=== PATIENT | male | born 1985 | race Caucasian/White ===

== ENCOUNTER 2022-04-02 10:57 | Emergency (ER) | payer OTHER, SELFPAY ==
[2022-04-02 11:11] VITALS: BP 147/93; PULSE 77; RESP 16; TEMP 36.3; O2SAT 98
--- NOTE | 2022-04-02 13:15 | ED.DENTAL ---
HPI - Dental/Oral General Chief complaint: Dental/Oral Stated complaint: Mouth Pain Source: patient Mode of arrival: ambulatory History of Present Illness HPI Narrative: This is a 37-year-old male who presented to our urgent care with multiple dental cavities in fractures. Patient has been experiencing dental pain he does have an appointment in May for dental care. The patient denies SOB, CP, palpitation, extremity numbness, lightheadedness, dizziness, constipation, diarrhea, chills, or fever. Related Data Home Medications Medication Instructions Recorded Confirmed duloxetine 60 mg capsule,delayed 60 mg PO DAILY 04/02/22 04/02/22 release famotidine 20 mg tablet 20 mg PO DAILY 04/02/22 04/02/22 gabapentin 300 mg capsule 300 mg PO TID 04/02/22 04/02/22 meloxicam 7.5 mg tablet 7.5 mg PO DAILY 04/02/22 04/02/22 olanzapine 2.5 mg tablet 2.5 mg PO HS 04/02/22 04/02/22 olanzapine 5 mg tablet 5 mg PO BID 04/02/22 04/02/22 omeprazole 40 mg capsule,delayed 40 mg PO DAILY 04/02/22 04/02/22 release propranolol 20 mg tablet 20 mg PO DAILY 04/02/22 04/02/22 trazodone 50 mg tablet mg 04/02/22 Allergies Allergy/AdvReac Type Severity Reaction Status Date / Time No Known Allergies Allergy Verified 04/02/22 12:24 Review of Systems Review of Systems: A 14 organ system Review of Systems was performed and pertinent positives included in the HPI, otherwise remaining ROS is negative. [facility] Family History Family History (Updated 02/02/14 @ 07:13 by DOCTOR UNKNOWN) Grandparent Diabetes mellitus Other Family history of malignant neoplasm Social History Social History Smoking status: Never smoker Alcohol intake: never Exam Narrative: GENERAL: This is a well-nourished, well-developed patient, in no apparent distress. HEAD: normocephalic, atraumatic. EYES: PERRL. Sclera clear/white. Vision is grossly intact. EARS: External ears normal, auditory canals clear and without drainage, TMs normal without perforation. Hearing grossly intact. NOSE: External nose normal with no obvious nasal discharge, nares without redness, no rhinorrhea. THROAT: Mucous membranes moist, posterior pharynx clear. NECK: Neck supple, non-tender without lymphadenopathy, masses or thyromegaly. CARDIOVASCULAR: Regular rate and rhythm without murmurs, gallops, or rubs. RESPIRATORY: Clear to auscultation. Breath sounds equal bilaterally. No wheezes, rales, or rhonchi. GASTROINTESTINAL: Abdomen soft, non-tender, nondistended. Bowel sounds are active. No hepato-splenomegaly, or palpable masses. No guarding. SKIN: warm, intact with no suspicious lesions or rash, good texture and turgor. NEURO: awake, alert, and oriented to person, place and time. There were no obvious focal neurologic abnormalities. EXTREMITIES: Normal range of motion. No edema. No calf tenderness. Multiple dental cavities with fractures Course Course Level of Care: Express Care Visit Vital Signs Vital signs: Vital Signs Temperature 97.4 F L 04/02/22 11:11 Pulse Rate 77 04/02/22 11:11 Respiratory Rate 16 04/02/22 11:11 Blood Pressure 147/93 H 04/02/22 11:11 Pulse Oximetry 98 04/02/22 11:11 Oxygen Delivery Room Air 04/02/22 11:11 Temperature 97.4 F L 04/02/22 11:11 Pulse Rate 77 04/02/22 11:11 Respiratory Rate 16 04/02/22 11:11 Blood Pressure 147/93 H 04/02/22 11:11 Pulse Oximetry 98 04/02/22 11:11 Oxygen Delivery Room Air 04/02/22 11:11 MDM - Dental/Oral Differential Diagnosis Differential diagnosis: Likely gingival abscess, dental caries, toothache, dental abscess and fracture of tooth Discharge Plan Discharge Clinical Impression: Dental caries, Toothache Patient Disposition: Home, Self-Care Condition: Stable Instructions: Antibiotic Form, Toothache (ED) Additional Instructions: Avoid temperature extremes May apply heat or ice to the face Gentle brushing and flossing Antibiotic as directed Humberto
== END 2022-04-02 13:15 | disposition home or self-care (01) ==
PROVIDERS: Emergency Provider Nurse Practitioner
DX: K02.9 Dental caries, unspecified (principal); K08.89 Other specified disorders of teeth and supporting structures
CPT/HCPCS: 99213; G0463

== ENCOUNTER 2022-12-12 13:15 | Emergency (ER) | payer OTHER, SELFPAY ==
[2022-12-12 13:25] VITALS: BP 130/87; PULSE 85; RESP 20; TEMP 36.1; O2SAT 100
--- NOTE | 2022-12-12 13:32 | ED.DENTAL ---
HPI - Dental/Oral General Chief complaint: Dental/Oral Stated complaint: dental pain Time Seen by Provider: 12/12/22 13:27 Source: patient and RN notes reviewed Mode of arrival: ambulatory Limitations: no limitations History of Present Illness HPI Narrative: Patient presents today complaining of left upper posterior dental pain. States pain has been present for several months has just been worsening. He is on a waiting list to have all of his teeth removed, likely toward the end of December. Currently rates his pain 7/10 and has been taking Tylenol and ibuprofen with mild relief. Denies shortness of breath or difficulty swallowing. No recent antibiotic use. Related Data Home Medications Medication Instructions Recorded Confirmed olanzapine 2.5 mg tablet 2.5 mg PO HS 04/02/22 12/12/22 omeprazole 40 mg capsule,delayed 40 mg PO DAILY 04/02/22 12/12/22 release propranolol 20 mg tablet 20 mg PO DAILY 04/02/22 12/12/22 atorvastatin 80 mg tablet mg 12/12/22 duloxetine 60 mg capsule,delayed 60 mg PO DAILY 12/12/22 12/12/22 release Allergies Allergy/AdvReac Type Severity Reaction Status Date / Time No Known Allergies Allergy Verified 12/12/22 13:31 Review of Systems Review of Systems: CONSTITUTIONAL: Denies body aches, fever, chills, or sweats. EYES: Denies visual changes, redness, or discharge. ENT: Denies rhinorrhea, congestion, sore throat, or otalgia.+ dental pain CARDIOVASCULAR: Denies chest pain, palpitations, or edema. RESPIRATORY: Denies cough or dyspnea. GASTROINTESTINAL: Denies abdominal pain, nausea, vomiting, or diarrhea. GENITOURINARY: Denies dysuria or hematuria. SKIN: Denies rash, itching, or wounds. MUSCULOSKELETAL: Denies back pain, joint pain, or myalgia. NEUROLOGIC: Denies headache, numbness, tingling, or weakness. PSYCH: Denies depression or anxiety. [facility] Family History Family History Grandparent Diabetes mellitus Other Family history of malignant neoplasm Social History Social History Smoking status: Never smoker Alcohol intake: never Comments At time of signature, I have reviewed and agree with nursing past medical, surgical, social and family history unless otherwise noted. Please see nursing chart for further information. There is no relevant family history pertinent to the presenting complaint Exam Narrative: GENERAL: Well-appearing, well-nourished, and in no acute distress. HEAD: Normocephalic, atraumatic. EYES: EOMI. No redness or drainage. Conjunctivae normal. ENT: Mucous membranes pink and moist. Throat normal. Uvula midline. Tooth 16. Is broken off at the gumline and is tender to palpation. No obvious edema, erythema or periapical abscess noted. Gross dental decay and broken teeth. No facial swelling noted. NECK: Normal AROM. CHEST: No respiratory distress. EXTREMITIES: Normal range of motion. No edema. SKIN: Warm, dry, no rash. Capillary refill normal. Normal skin turgor. NEURO: No focal deficits. Alert and oriented x3. Gait steady. PSYCH: Normal affect. No signs of depression or anxiety. Course Course Level of Care: Express Care Visit Vital Signs Vital signs: Vital Signs Temperature 97.0 F L 12/12/22 13:25 Pulse Rate 85 12/12/22 13:25 Respiratory Rate 20 12/12/22 13:25 Blood Pressure 130/87 12/12/22 13:25 Pulse Oximetry 100 12/12/22 13:25 Oxygen Delivery Room Air 12/12/22 13:25 Temperature 97.0 F L 12/12/22 13:25 Pulse Rate 85 12/12/22 13:25 Respiratory Rate 20 12/12/22 13:25 Blood Pressure 130/87 12/12/22 13:25 Pulse Oximetry 100 12/12/22 13:25 Oxygen Delivery Room Air 12/12/22 13:25 Reviewed. Pt has been instructed to follow up with his PCP regarding his elevated blood pressure today. MDM - Dental/Oral MDM Narrative Medical decision making narrative: Will start
== END 2022-12-12 13:39 | disposition home or self-care (01) ==
PROVIDERS: Emergency Provider Nurse Practitioner
DX: K08.89 Other specified disorders of teeth and supporting structures (principal); E78.00 Pure hypercholesterolemia, unspecified; I10 Essential (primary) hypertension; K21.9 Gastro-esophageal reflux disease without esophagitis
CPT/HCPCS: 99213; G0463

== ENCOUNTER 2023-01-06 11:56 | Emergency (ER) | payer OTHER, SELFPAY ==
[2023-01-06 12:15] VITALS: BP 143/94; PULSE 83; RESP 18; TEMP 36.4; O2SAT 99
--- NOTE | 2023-01-06 12:25 | ED.DENTAL ---
HPI - Dental/Oral General Chief complaint: Dental/Oral Stated complaint: dental pain Time Seen by Provider: 01/06/23 12:15 Source: patient Mode of arrival: ambulatory Limitations: no limitations History of Present Illness HPI Narrative: Jace is a 38-year-old male patient presenting to the clinic today with complaints of chronic dental pain but pain has gotten worse since yesterday. He reports that he was seen in the urgent care 1 month ago for dental infection and finished antibiotics at that time.. Has an appointment with the [facility] and October. Denies any fever or chills. Is having pain to the left upper jaw and the right lower jaw. Related Data Home Medications Medication Instructions Recorded Confirmed olanzapine 2.5 mg tablet 2.5 mg PO HS 04/02/22 01/06/23 omeprazole 40 mg capsule,delayed 40 mg PO DAILY 04/02/22 01/06/23 release propranolol 20 mg tablet 20 mg PO DAILY 04/02/22 01/06/23 atorvastatin 80 mg tablet 80 mg PO DAILY 12/12/22 01/06/23 duloxetine 60 mg capsule,delayed 60 mg PO DAILY 12/12/22 01/06/23 release Allergies Allergy/AdvReac Type Severity Reaction Status Date / Time No Known Allergies Allergy Verified 01/06/23 12:14 Review of Systems Review of Systems: Pertinent positives per HPI. Patient denies any fever, chills, rash, headache, visual changes, dizziness, cough, runny nose, sore throat, shortness of breath, chest pain, palpitations, nausea, vomiting, diarrhea, constipation, abdominal pain, or any urinary issues. [facility] Family History Family History Grandparent Diabetes mellitus Other Family history of malignant neoplasm Social History Social History Smoking status: Never smoker Alcohol intake: never Comments At the time of my signature, I reviewed and agree with the nursing past medical, surgical, social, and family history. There is no relevant family history pertinent to the patient complaint. Exam Narrative: General: Well-developed, well nourished, in no apparent distress Head: Normocephalic, atraumatic Eyes: Pupils equally round and reactive to light bilaterally, EOM intact, sclera and conjunctive clear, no discharge, lids normal Ears: TMs intact and clear, ear canals clear, no drainage, grossly hearing normal. Nose: Nares patent, no discharge, no inflammation, no sinus tenderness. Mouth: Oropharynx without lesions or masses, very poor dentition with multiple cavities and fractured teeth, no abscess formation visualized or palpable, halitosis, MMM. Neck: Supple, trachea midline, no enlargement of anterior or posterior cervical nodes, no thyroid masses or goiter palpable. Cardio: Regular rate and rhythm, s1 and s2 normal, no murmur appreciated. Resp: Clear to auscultation bilaterally anteriorly and posteriorly, no rhonchi, rales, wheezing or rubs Course Course Emergency Course: Portions of this record may have been created with voice recognition software. Level of Care: Express Care Visit Vital Signs Vital signs: Vital Signs Temperature 36.4 C 01/06/23 12:15 Pulse Rate 83 01/06/23 12:15 Respiratory Rate 18 01/06/23 12:15 Blood Pressure 143/94 H 01/06/23 12:15 Pulse Oximetry 99 01/06/23 12:15 Oxygen Delivery Room Air 01/06/23 12:15 Temperature 36.4 C 01/06/23 12:15 Pulse Rate 83 01/06/23 12:15 Respiratory Rate 18 01/06/23 12:15 Blood Pressure 143/94 H 01/06/23 12:15 Pulse Oximetry 99 01/06/23 12:15 Oxygen Delivery Room Air 01/06/23 12:15 Vital signs reviewed MDM - Dental/Oral MDM Narrative Medical decision making narrative: At the time of visit patient is resting comfortably on exam table. I suspect patient has multiple dental caries with the dental infection. Will send in prescription for clindamycin. Offer to send in Augmentin but he states that this
== END 2023-01-06 12:33 | disposition home or self-care (01) ==
PROVIDERS: Emergency Provider Nurse Practitioner Family; PCP Family Medicine
DX: K02.9 Dental caries, unspecified (principal); K04.7 Periapical abscess without sinus; E78.00 Pure hypercholesterolemia, unspecified; I10 Essential (primary) hypertension; K21.9 Gastro-esophageal reflux disease without esophagitis
CPT/HCPCS: 99213; G0463

== ENCOUNTER 2024-01-04 14:42 | Emergency (ER) | payer OTHER, SELFPAY ==
[2024-01-04 14:48] VITALS: BP 143/99; PULSE 90; RESP 18; TEMP 36.7; O2SAT 96
--- NOTE | 2024-01-04 16:45 | PC.NURSE ---
Patient states he does not want to wait any longer to see provider. patient educated on risks of leaving and ambulated out of department with [facility]
== END 2024-01-04 16:47 | disposition left against medical advice (07) ==
LOC: ANHED 16:27
PROVIDERS: Emergency Provider Physician Assistant; PCP Family Medicine
DX: K08.89 Other specified disorders of teeth and supporting structures (principal)
CPT/HCPCS: 99199

== ENCOUNTER 2024-01-07 12:16 | Emergency (ER) | payer OTHER, SELFPAY ==
[2024-01-07 12:25] VITALS: BP 145/90; PULSE 92; RESP 18; TEMP 36.9; O2SAT 98
--- NOTE | 2024-01-07 12:43 | ED.DENTAL ---
HPI - Dental/Oral General Chief complaint: Dental/Oral Stated complaint: Toothache Time Seen by Provider: 01/07/24 12:36 Source: patient and RN notes reviewed Mode of arrival: ambulatory Limitations: no limitations History of Present Illness HPI Narrative: Patient presents today complaining of tooth pain. Reports all of his teeth her, but primarily in bilateral posterior bottom teeth are hurting the worst. Symptoms began 2 days ago. Reports gross dental decay. He is supposed to have all of his teeth extracted in 3 weeks. Call his dentist but they could not get him in and instructed him to come to urgent care for antibiotics. Denies fever, shortness of breath, trismus. No recent antibiotic use. He has been using Tylenol and ibuprofen without much relief. Related Data Home Medications Medication Instructions Recorded Confirmed olanzapine 2.5 mg tablet 2.5 mg PO HS 04/02/22 01/06/23 omeprazole 40 mg capsule,delayed 40 mg PO DAILY 04/02/22 01/06/23 release propranolol 20 mg tablet 20 mg PO DAILY 04/02/22 01/06/23 atorvastatin 80 mg tablet 80 mg PO DAILY 12/12/22 01/06/23 duloxetine 60 mg capsule,delayed 60 mg PO DAILY 12/12/22 01/06/23 release Allergies Allergy/AdvReac Type Severity Reaction Status Date / Time No Known Allergies Allergy Verified 01/04/24 14:50 Review of Systems Review of Systems: CONSTITUTIONAL: Denies body aches, fever, chills, or sweats. EYES: Denies visual changes, redness, or discharge. ENT: Denies rhinorrhea, congestion, sore throat, or otalgia.+ tooth pain CARDIOVASCULAR: Denies chest pain, palpitations, or edema. RESPIRATORY: Denies cough or dyspnea. GASTROINTESTINAL: Denies abdominal pain, nausea, vomiting, or diarrhea. GENITOURINARY: Denies dysuria or hematuria. SKIN: Denies rash, itching, or wounds. MUSCULOSKELETAL: Denies back pain, joint pain, or myalgia. NEUROLOGIC: Denies headache, numbness, tingling, or weakness. PSYCH: Denies depression or anxiety. [facility] Family History Family History Grandparent Diabetes mellitus Other Family history of malignant neoplasm Social History Social History Smoking status: Never smoker Alcohol intake: never Comments At time of signature, I have reviewed and agree with nursing past medical, surgical, social and family history unless otherwise noted. Please see nursing chart for further information. There is no relevant family history pertinent to the presenting complaint Exam Narrative: GENERAL: Well-appearing, well-nourished, and in no acute distress. HEAD: Normocephalic, atraumatic. EYES: EOMI. No redness or drainage. Conjunctivae normal. ENT: Mucous membranes pink and moist. Gross dental decay. Many teeth are broken at the gum line or brown in color. No obvious periapical abscess is noted. No facial swelling or trismus noted. NECK: Normal AROM. Supple. No lymphadenopathy. CHEST: No respiratory distress. EXTREMITIES: Normal range of motion. No edema. SKIN: Warm, dry, no rash. Capillary refill normal. Normal skin turgor. NEURO: No focal deficits. Alert and oriented x3. Gait steady. PSYCH: Normal affect. No signs of depression or anxiety. Course Course Emergency Course: . Level of Care: Express Care Visit Vital Signs Vital signs: Vital Signs Temperature 98.4 F 01/07/24 12:25 Pulse Rate 92 01/07/24 12:25 Respiratory Rate 18 01/07/24 12:25 Blood Pressure 145/90 H 01/07/24 12:25 Pulse Oximetry 98 01/07/24 12:25 Oxygen Delivery Room Air 01/07/24 12:25 Temperature 98.4 F 01/07/24 12:25 Pulse Rate 92 01/07/24 12:25 Respiratory Rate 18 01/07/24 12:25 Blood Pressure 145/90 H 01/07/24 12:25 Pulse Oximetry 98 01/07/24 12:25 Oxygen Delivery Room Air 01/07/24 12:25 Reviewed MDM - Dental/Oral MDM Narrative Medical decision making narrative:
== END 2024-01-07 12:47 | disposition home or self-care (01) ==
PROVIDERS: Emergency Provider Nurse Practitioner; PCP Family Medicine
DX: K08.89 Other specified disorders of teeth and supporting structures (principal)
CPT/HCPCS: 99213; G0463

== ENCOUNTER 2024-03-23 14:10 | Emergency (ER) | payer OTHER, SELFPAY ==
[2024-03-23 14:40] VITALS: BP 144/98; PULSE 91; RESP 16; TEMP 36.9; O2SAT 98
--- NOTE | 2024-03-23 14:41 | ED.DENTAL ---
HPI - Dental/Oral General Chief complaint: Dental/Oral Stated complaint: dental infection Time Seen by Provider: 03/23/24 14:26 History of Present Illness HPI Narrative: Patient is a 31-year-old male who presents ER with dental pain. Home mouth. X2 days. He is supposed to have a dental extraction of all of his teeth in [place] in the next week. He is told to go to their office or come here but reports this is closer. No fevers or chills or sweats. No facial swelling. No other complaints. Related Data Home Medications Medication Instructions Recorded Confirmed olanzapine 2.5 mg tablet 2.5 mg PO HS 04/02/22 01/06/23 omeprazole 40 mg capsule,delayed 40 mg PO DAILY 04/02/22 01/06/23 release propranolol 20 mg tablet 20 mg PO DAILY 04/02/22 01/06/23 atorvastatin 80 mg tablet 80 mg PO DAILY 12/12/22 01/06/23 duloxetine 60 mg capsule,delayed 60 mg PO DAILY 12/12/22 01/06/23 release Allergies Allergy/AdvReac Type Severity Reaction Status Date / Time amoxicillin [From Augmentin] AdvReac Vomiting Verified 03/23/24 14:41 clavulanic acid AdvReac Vomiting Verified 03/23/24 14:41 [From Augmentin] Review of Systems Constitutional: Constitutional: Reports no additional constitutional complaints ENT: Denies nasal congestion and Denies sore throat Comments: +dental pain Respiratory: Respiratory: Reports no additional respiratory complaints Gastrointestinal: Gastrointestinal: Reports no additional gastrointestinal complaints [facility] Past Medical History Medical History (Updated 03/23/24 @ 14:47 by Angelo Duaret MD) History of IBS Mixed hyperlipidemia Family History Family History Grandparent Diabetes mellitus Other Family history of malignant neoplasm Social History Social History Smoking status: Never smoker Alcohol intake: never Exam Narrative: GENERAL: Well-appearing, well-nourished, and in no acute distress. HEAD: Normocephalic, atraumatic. ENT: Mucous membranes moist. poor dentition without facial swelling. No fluctuant abscesses identified. EXTREMITIES: Normal range of motion. SKIN: Warm, dry. NEURO: Alert and oriented x3. PSYCH: Normal mood and affect. Course Course Emergency Course: Discharge home with oral antibiotics. Discharge Plan Discharge Clinical Impression: Toothache Patient Disposition: Home, Self-Care Condition: Stable Instructions: Toothache (ED) Additional Instructions: Return the ER if you have worsening pain, have facial swelling, you cannot keep down food/water/ medication primary additional concerns. Prescriptions: New clindamycin HCl 150 mg capsule 450 mg PO Q8H 7 Days Qty: 63 0RF hydrocodone-acetaminophen 5-325 mg tablet 1 tablet PO Q6H PRN (Reason: pain) Qty: 10 0RF No Action olanzapine 2.5 mg tablet 2.5 mg PO HS omeprazole 40 mg capsule,delayed release(DR/EC) 40 mg PO DAILY propranolol 20 mg tablet 20 mg PO DAILY amoxicillin 875 mg tablet 875 mg PO Q12H 10 Days Qty: 20 0RF atorvastatin 80 mg tablet 80 mg PO DAILY duloxetine 60 mg capsule,delayed release(DR/EC) 60 mg PO DAILY ibuprofen 800 mg tablet 800 mg PO TID 10 Days Qty: 30 0RF Follow-up/Referrals: Viet,Aurora Hou MD [Primary Care Provider] - 1 Week
== END 2024-03-23 15:00 | disposition home or self-care (01) ==
PROVIDERS: Emergency Provider Emergency Medicine; PCP Family Medicine
DX: K08.89 Other specified disorders of teeth and supporting structures (principal); E78.2 Mixed hyperlipidemia; K58.9 Irritable bowel syndrome, unspecified; Z79.899 Other long term (current) drug therapy
CPT/HCPCS: 99283

== ENCOUNTER 2025-05-07 10:42 | Emergency (ER) | payer OTHER, SELFPAY ==
--- OUTSIDE RECORDS SUMMARY | 2024-06-22 03:00 | XMS_ITS ---
Author Organization [facility] Address [address] [place] [address] Care Team Providers Care Pocket Assembler Name Role Phone Irene Archuleta Primary Care Provider [phone] REASON FOR VISIT f/u Medications Medication SIG (Take, Route, Frequency, Duration) Notes Start Date End Date Status OLANZapine 5 MG 1 tablet in the morn ing Orally Once a day; Duration: 30 days 10/02/2022 Active Propranolol HCl 20 MG 1 tablet Orally Tw ice a day; Duration: 30 days Active Cymbalta 60 MG 1 capsule Orally Twi ce a day; Duration: 30 days Active Meloxicam 7.5 MG 1 tablet Orally twic e a day Active OLANZapine 10 MG 1 tablet at bedtime Orally Once a day; Duration: 30 days Active Cyclobenzaprine HCl 10 MG 1 tablet at be dtime as needed Orally Once a day Active Atorvastatin Calcium 20 MG 1 tablet Oral ly Once a day Active Omeprazole 20 MG 1 capsule 30 minutes before morning meal Orally Once a day Active Famotidine 40 MG 1 tablet at bedtime Orally Once a day Active Social History Sex Assigned At : Social History Observation Description Sex Assigned At Male Encounters Encounter Location Date Provider Diagnosis [facility] [address] [place] [address] 06/22/2024 Irene Archuleta Schizoaffective disorder, bipolar type F25.0 and Social anxiety disorder F40.10 Assessments Encounter Date Diagnosis (ICD Code) Assessment Notes Treatment Notes Treatment Clinical Notes Section Notes 06/22/2024 Schizoaffective disorder, bipolar type (ICD-10 - F25.0) 06/22/2024 Social anxiety disorder (ICD-10 - F40.10) Plan Of Treatment Next Appt Details Provider Name:Irene Leblanc Marvin rosario, 05/18/2025 04:00:00 PM, [address], [place], [address], Progress Notes * Roslyn SIFUENTESOB: [birth year] (40 yo M)Acc No.[id number]:06/22/2024 UNLOCKED PROGRESS NOTE Patient: Jace JAMES Provider: Annie Archuleta DNP, MAILE, ENVELOPE MACHINE OPERATOR :1985 A ge:39 Y S ex:Male Date:06/22/2024 Address:[address] [place] [address], [id number] Structured Data:Is there a n trisha you would prefer we call you? (Nombre que prefiere usar) : No Subjective: * Chief Complaints: * 1 . F/u. * Medical History: * Medications: T aking Famotidine 40 MG Tablet 1 tablet at bedtime Orally Once a day , Taking Omeprazole 20 MG Capsule Delayed Release 1 capsule 30 minutes before morning meal Orally Once a day , Taking Atorvastatin Calcium 20 MG Tablet 1 tablet Orally Once a day , Taking Cyclobenzaprine HCl 10 MG Tablet 1 tablet at bedtime as needed Orally Once a day , Taking Meloxicam 7.5 MG Tablet 1 tablet Orally twice a day , Taking Cymbalta 60 MG Capsule Delayed Release Particles 1 capsule Orally Twice a day , Taking Propranolol HCl 20 MG Tablet 1 tablet Orally Twice a day , Taking OLANZapine 5 MG Tablet 1 tablet in the morning Orally Once a day , Taking OLANZapine 10 MG Tablet 1 tablet at bedtime Orally Once a day Objective: * Vitals: Assessment: * Assessment: 1. S chizoaffective disorder, bipolar type - F25.0 (Primary) 2 . S ocial anxiety disorder - F40.10 Plan: * Treatment: * * Electronic signature of Phuong Archuleta on 05/07/2025 at 10:47 AM MOTEL MANAGER Sign off status: Pending * Provider: Annie Archuleta DNP, MAILE, ENVELOPE MACHINE OPERATOR Date: 0 06/22/2024 Generated for Printing/Faxing/eTransmitting on: 1 07/07/2024 10:47 AM MOTEL MANAGER
--- OUTSIDE RECORDS SUMMARY | 2025-05-07 10:45 | XMS_ITS | Clinical Summary ---
Author Organization [facility] Address [address] [place] [address] Care Team Providers Care Membership Advisor Name Role Phone Aurora Llanos MD Primary Care Provider [phone] Allergies Active Allergy Reactions Criticality Noted Date Comments Amoxicillin-Pot Clavulanate Nausea and Vomiting 12/24/2023 Medications atorvastatin (LIPITOR) 20 MG tablet daily. Active DULoxetine (CYMBALTA) 60 MG capsule 1 capsule (60 mg total) every 12 (twelve) hours. Active gabapentin (NEURONTIN) 300 MG capsule 3 Active meloxicam (MOBIC) 7.5 MG tablet every 12 (twelve) hours. Active OLANZapine (ZYPREXA) 10 MG tablet daily. Active OLANZapine (ZYPREXA) 5 MG tablet daily. 3 Active omeprazole (PRILOSEC) 20 MG capsule daily. Active propranolol (INDERAL) 20 MG tablet every 12 (twelve) hours. Active azithromycin (ZITHROMAX) 250 MG tablet Take 2 tablets by mouth on day one then 1 daily for four days. 6 tablet 5 05/10/20 25 Active sulfamethoxazol e-trimethoprim (BACTRIM DS) 800-160 MG tablet Take 1 tablet by mouth 2 (two) times daily for 14 days. 28 tablet 5 05/19/20 25 Active guaiFENesin-cod eine (GUAIFENESIN AC) 100-10 MG/5ML syrupIndication s:Cough Take 5 mLs by mouth every 4 (four) hours as needed for Cough. Indications: Cough 120 mL 11/28/202 5 Active famotidine (PEPCID) 20 MG tablet Take 1 tablet (20 mg total) by mouth 2 (two) times daily. 20 tablet Active famotidine (PEPCID) 40 MG tablet daily. 05/05/20 25 Discontinu ed(Formula ry change) Encounters Date Type Department Care Team Description 05/05/2025 12:16 PM CLINICAL RESEARCH SPECIALIST - 05/05/2025 2:44 PM CLINICAL RESEARCH SPECIALIST Emergency [facility] Emergency Room [address] [place] [address] Dmitry Duncan MD URI Discharge Disposition: Home or Self Care (Routine Discharge) 05/05/2025 Travel from Last 3 Months Social History Tobacco Use Types Packs/Day Years Used Date Smoking Tobacco: Every Day Cigarettes Smokeless Tobacco: Never Tobacco Cessation:Ready to Q uit: Not Asked; Counseling Given: Not Answered Alcohol Use Standard Drinks/Week Comments Yes 0 (1 standard drink = 0.6 oz pur e alcohol) socially Sex and Gender Information Value Date Recorded Sex Assigned at Male 05/05/2025 12:39 PM CLINICAL RESEARCH SPECIALIST Legal Sex Male 7:39 PM CDT Gender Identity Not on file Sexual Orientation Not on file Last Filed Vital Signs Vital Sign Reading Time Taken Comments Blood Pressure 156/60 05/05/2025 2:27 PM CLINICAL RESEARCH SPECIALIST Pulse 76 05/05/2025 2:27 PM CLINICAL RESEARCH SPECIALIST Temperature 37.1 C (98.7 F) 05/05/2025 2:27 PM CLINICAL RESEARCH SPECIALIST Respiratory Rate 20 05/05/2025 2:27 PM CLINICAL RESEARCH SPECIALIST Oxygen Saturation 100% 05/05/2025 2:27 PM CLINICAL RESEARCH SPECIALIST Inhaled Oxygen Concentration - - Weight 117.9 kg (260 lb) 05/05/2025 12:26 PM CLINICAL RESEARCH SPECIALIST Height 182.9 cm (6') 05/05/2025 12:26 PM CLINICAL RESEARCH SPECIALIST Body Mass Index 35.26 05/05/2025 12:26 PM CLINICAL RESEARCH SPECIALIST Plan of Treatment Health Maintenance Due Date Last Done Comments Annual Physical 1989 Hepatitis C 01/06/2004 DTaP, Tdap and Td Vaccines ( 1 - Tdap) 2005 Hepatitis B Vaccines (1 of 3 - 19+ 3-dose series) 2005 Pneumococcal Vaccine: Pediat rics (0 to 5 Years) and At-Risk Patients (6 to 49 Years) (1 of 2 - PCV) 2005 HPV Vaccines (1 - 3-dose SCD M series) 2013 PHQ-2 (Physician [place]) 06/08/2024 COVID-19 Vaccine (1 - 2024-2 6 season) 2025 Influenza Adult (#1) 2025 Hepatitis A Vaccines Aged Out No long er eligible based on patient's age to complete this topic Meningococcal B Vaccine Aged Out No l onger eligible based on patient's age to complete this topic Meningococcal Vaccine Aged Out No lizbet nicole eligible based on patient's age to complete this topic RSV Immunizations Under 20 Months Aged Out No longer eligible based on patient's age to complete this topic Procedures Procedure Name Priority Date/Time Associated Diagnosis Comments XR CHEST PORTABLE STAT 05/05/2025 12: 57 PM CLINICAL RESEARCH SPECIALIST RESPIRATORY PCR PNL LIMITED STAT 05/05/2025 12:25 PM CLINICAL RESEARCH SPECIALIST STREP A, DNA STAT 05/05/2025 12:25 PM CLINICAL RESEARCH SPECIALIST from Last 3 Months Results * XR CHEST PORTABLE (05/05/2025 12:57 PM CLINICAL RESEARCH SPECIALIST) Anatomical Region Laterality Modality Chest Radiographic Salome ging 05/05/2025 12:5 8 PM CLINICAL RESEARCH SPECIALIST Impressions 05/05/2025 12:59 PM CLINICAL RESEARCH SPECIALIST IMPRESSION: No acute findings Ordered By: DMITRY DUNCAN Interpreted By: Yared Turner MD, 05/05/2025 12:58 PM Narrative 05/05/2025 12:59 PM CLINICAL RESEARCH SPECIALIST [facility] [address] [place] [address] SINGLE VIEW OF THE CHEST Clinical history: Cough, wheezing Comparison: August 30, 2020 A single view of the chest demonstrates the cardiac silhouette to be normal in size and appearance. The pulmonary vasculature appears normal. The Lungs are clear. No consolidations or effusions are seen. Procedure Note Yared Turner MD - 05/05/2025 [facility] [address] [facility] [place] [address] SINGLE VIEW OF THE CHEST Clinical history: Cough, wheezing Comparison: August 30, 2020 A single view of the chest demonstrates the cardiac silhouette to benormal in size and appearance. The pulmonary vasculature appears normal.The Lungs are clear. No consolidations or effusions are seen. IMPRESSION: No acute findings Ordered By: DMITRY DUNCAN Interpreted By: Yared Turner MD, 05/05/2025 12:58 PM Dmitry Duncan MD GENERAL IMAGING Final Result * STREP A, DNA (05/05/2025 12:25 PM CLINICAL RESEARCH SPECIALIST) SPECIMEN SOURCE THROAT 05/05/2025 12:25 PM CLINICAL RESEARCH SPECIALIST [facility] STREP A MOLECULAR NOT DETECTED NOT DETECTED 05/05/2025 12:58 PM CLINICAL RESEARCH SPECIALIST [facility] SWAB STRUCTURE OF ANTERIOR REGION OF NECK / Unknown 05/05/2025 12:25 PM CLINICAL RESEARCH SPECIALIST Dmitry Duncan MD MICROBIOLOGY - GENERAL ORDERABL ES Final Result [facility] [address] [place] [address], [place] [phone] * RESPIRATORY PCR PNL LIMITED (FLU A/FLU B/RSV/COVID) (05/05/2025 12:25 PM CLINICAL RESEARCH SPECIALIST) SPECIMEN SOURCE NASOPHARYNGEAL SWAB 05/05/2025 12:25 PM CLINICAL RESEARCH SPECIALIST [facility] CORONAVIRUS SARS COV 2 PCR (RESP) NEGATIVE NEGATIVE 05/05/2025 1:14 PM CLINICAL RESEARCH SPECIALIST [facility] INFLUENZA A PCR (RESP) NEGATIVE NEGATIVE 05/05/2025 1:14 PM CLINICAL RESEARCH SPECIALIST [facility] INFLUENZA B PCR (RESP) NEGATIVE NEGATIVE 05/05/2025 1:14 PM CLINICAL RESEARCH SPECIALIST [facility] RSV PCR (RESP) NEGATIVE NEGATIVE 05/05/2025 1:14 PM CLINICAL RESEARCH SPECIALIST [facility] SWAB NASOPHARYNGEAL STRUCTURE / Unknown 05/05/2025 12:25 PM CLINICAL RESEARCH SPECIALIST [place] Dmitry Duncan MD MICROBIOLOGY - GENERAL ORDERABL ES Final Result [facility] [address] [place] [address], [place] [phone] from Last 3 Months Insurance [employer] Care Teams Membership Advisor Relationship Specialty Start Date End Date Aurora Llanos MD [address] [facility] [address] [place] [address] PCP - General FAMILY PRACTICE 04/20/23
--- OUTSIDE RECORDS SUMMARY | 2025-05-07 10:45 | XMS_ITS | Encounter Summary ---
Author Organization [facility] Address [address] [place] [address] Care Team Providers Care Senior Clinical Consultant Name Role Phone Yared Gabriel MD Primary Care Provider [phone] Nazanin Cano DO Primary Care Provider [phone] Aurora Llanos MD Primary Care Provider [phone] Encounter Details Date Type Department Care Team (Late st Contact Info) Description 03/10/2016 Abstract [facility] CONVERSION [address] [place], [place] [id number] , Generic ConversionMD Social History Tobacco Use Types Packs/Day Years Used Date Smoking Tobacco: Never Assessed Sex and Gender Information Value Date Recorded Sex Assigned at Male 05/05/2025 12:39 PM LADLE LINER HELPER Legal Sex Male 7:39 PM CDT Gender Identity Not on file Sexual Orientation Not on file documented as of this encounter Plan of Treatment Not on file documented as of this encounter Visit Diagnoses Not on filedocumented in this encounter Additional Health Concerns Infection Onset Date Last Indicated Resolved Time COVID-19 Rule Out 06/04/2020 06/04/2020 06/06/2020 8:52 AM LADLE LINER HELPER Respiratory Rule Out 05/05/2025 05/05/2025 025 1:15 PM LADLE LINER HELPER documented as of this encounter Care Teams Senior Clinical Consultant Relationship Specialty Start Date End Date Yared Garbiel MD [address] [place] [address] PCP - General 04/04/14 06/03/20 Nazanin Cano DO 3 [facility] [address] [place] [phone] PCP - General FAMILY PRACTICE 06/04/20 04/19/23 Aurora Llanos MD [address] [facility] [id number] [place] [address] PCP - General FAMILY PRACTICE 04/20/23 documented as of this encounter
--- OUTSIDE RECORDS SUMMARY | 2025-05-07 10:45 | XMS_ITS | Clinical Summary ---
Author Organization [facility] Address [address] [place] [address] Care Team Providers Care Permanent Waver Name Role Phone Unknown, Notinfile Primary Care Provider Unavail able Allergies No known active allergies Medical History Medical History Date Comments Depression Schizo affective schizophrenia (HCC) Social History Tobacco Use Types Packs/Day Years Used Date Smoking Tobacco: Every Day Cigarettes Tobacco Cessation:Ready to Q uit: Not Asked; Counseling Given: Not Answered Personal Safety Answer Date Recorded Have you ever been in or are you currently in a harmful physical or emotional relationship or is someone making you feel afraid or unsafe? Denies 03/13/2024 Sex and Gender Information Value Date Recorded Sex Assigned at Not on file Legal Sex Male 5:29 AM TUTORING ASSISTANT Gender Identity Not on file Sexual Orientation Not on file Last Filed Vital Signs Vital Sign Reading Time Taken Comments Blood Pressure 155/103 03/13/2024 11:30 AM CDT Pulse 98 03/13/2024 11:30 AM CDT Temperature 36.7 C (98.1 F) 03/13/2024 6:11 AM CDT Respiratory Rate 13 03/13/2024 11:30 AM CDT Oxygen Saturation 98% 03/13/2024 11:30 AM CDT Inhaled Oxygen Concentration - - Weight 98 kg (216 lb 0.8 oz) 03/13/2024 6:11 AM CDT Height 182.9 cm (6') 03/13/2024 6:11 AM CDT Body Mass Index 29.3 03/13/2024 6:11 AM CDT Plan of Treatment Health Maintenance Due Date Last Done Comments Depression Screening 1986 Hepatitis C Screening 1986 Varicella Vaccines (1 of 2 - 13+ 2-dose series) 1999 Hepatitis B Screening 01/06/2004 Regular Well Visit/Exam 18-64 01/06/2004 Pneumococcal vaccine <65 (1 of 2 - PCV) 2005 HPV Vaccines (1 - 3-dose SCDM series) 2013 Influenza Vaccine (#1) 2025 03/02/2020, 2017 DTaP/Tdap/Td Vaccine (2 - Td or Tdap) 09/13/202801/[address] [place] [address] [facility] Care Teams Permanent Waver Relationship Specialty Start Date End Date Unknown, Notinfile PCP - General 03/13/24
--- OUTSIDE RECORDS SUMMARY | 2025-05-07 10:45 | XMS_ITS | Encounter Summary ---
Author Organization [facility] Address [address] [place] [address] Care Team Providers Care Machinist Supervisor Name Role Phone Yared Gabriel MD Primary Care Provider [phone] Nazanin Cano DO Primary Care Provider [phone] Aurora Llanos MD Primary Care Provider [phone] Encounter Details Date Type Department Care Team (Late st Contact Info) Description 06/18/[address] [facility] CONVERSION [address] [place], [place] [id number] , Generic ConversionMD Social History Tobacco Use Types Packs/Day Years Used Date Smoking Tobacco: Never Assessed Sex and Gender Information Value Date Recorded Sex Assigned at Male 05/05/2025 12:39 PM FRONT END WEB DEVELOPER Legal Sex Male 7:39 PM CDT Gender Identity Not on file Sexual Orientation Not on file documented as of this encounter Plan of Treatment Not on file documented as of this encounter Visit Diagnoses Not on filedocumented in this encounter Additional Health Concerns Infection Onset Date Last Indicated Resolved Time COVID-19 Rule Out 06/04/2020 06/04/2020 06/06/2020 8:52 AM FRONT END WEB DEVELOPER Respiratory Rule Out 05/05/2025 05/05/2025 025 1:15 PM FRONT END WEB DEVELOPER documented as of this encounter Care Teams Machinist Supervisor Relationship Specialty Start Date End Date Yared Gabriel MD [address] [place] [address] PCP - General 04/04/14 06/03/20 Nazanin Cano DO 3 [facility] [address] [place] [phone] PCP - General FAMILY PRACTICE 06/04/20 04/19/23 Aurora Llanos MD 3 [facility] [id number] [place] [address] PCP - General FAMILY PRACTICE 04/20/23 documented as of this encounter
--- OUTSIDE RECORDS SUMMARY | 2025-05-07 10:45 | XMS_ITS | Clinical Summary ---
Author Organization [facility] Address [address] [place] [address] Phone Care Team Providers Care Fur Operator Name Role Phone Gato Morton MD Primary Care Provider Social History Tobacco Use Types Packs/Day Years Used Date Smoking Tobacco: Never Assessed Sex and Gender Information Value Date Recorded Sex Assigned at Not on file Legal Sex Male 3:22 AM LINE FIXER Gender Identity Not on file Sexual Orientation Not on file Plan of Treatment Not on file Insurance MEDICA[employer] Care Teams Fur Operator Relationship Specialty Start Date End Date Gato Morton MD [address] [place] [address] PCP - General Family Medicine 08/27/15
--- OUTSIDE RECORDS SUMMARY | 2025-05-07 10:45 | XMS_ITS | Encounter Summary ---
Author Organization [facility] Address [address] [place] [address] Care Team Providers Care Take Out Waitress Name Role Phone Yared Gabriel MD Primary Care Provider [phone] Nazanin Cano DO Primary Care Provider [phone] Aurora Llanos MD Primary Care Provider [phone] Encounter Details Date Type Department Care Team (Late st Contact Info) Description 02/06/2016 Abstract [facility] CONVERSION [address] [place], [place] [id number] , Generic ConversionMD Social History Tobacco Use Types Packs/Day Years Used Date Smoking Tobacco: Never Assessed Sex and Gender Information Value Date Recorded Sex Assigned at Male 05/05/2025 12:39 PM SMALL ENGINE TECHNICIAN Legal Sex Male 7:39 PM CDT Gender Identity Not on file Sexual Orientation Not on file documented as of this encounter Plan of Treatment Not on file documented as of this encounter Visit Diagnoses Not on filedocumented in this encounter Additional Health Concerns Infection Onset Date Last Indicated Resolved Time COVID-19 Rule Out 06/04/2020 06/04/2020 06/06/2020 8:52 AM SMALL ENGINE TECHNICIAN Respiratory Rule Out 05/05/2025 05/05/2025 025 1:15 PM SMALL ENGINE TECHNICIAN documented as of this encounter Care Teams Take Out Waitress Relationship Specialty Start Date End Date Yared Gabriel MD [address] [place] [address] PCP - General 04/04/14 06/03/20 Nazanin Cano DO 3 [facility] [address] [place] [phone] PCP - General FAMILY PRACTICE 06/04/20 04/19/23 Aurora Llanos MD 3 [facility] [address] [place] [address] PCP - General FAMILY PRACTICE 04/20/23 documented as of this encounter
--- OUTSIDE RECORDS SUMMARY | 2025-05-07 10:45 | XMS_ITS | Patient Health Record ---
Author Organization Formerly [facility] Address [address] [place] [address] Care Team Providers Care Case Monitor Name Role Phone Irene Archuleta Primary Care Provider Allergies No Known Allergies Reason For Referral No Information Medications Medication SIG (Take, Route, Frequency, Duration) Notes Start Date End Date Status DULoxetine HCl 60 MG 1 capsule Orally tw ice a day; Duration: 30 days 02/23/2025 Active Famotidine 40 MG 1 tablet at bedtime Orally Once a day Active FLUoxetine HCl 20 MG 1 capsule Orally On ce a day; Duration: 30 days 03/23/2025 Active Omeprazole 20 MG 1 capsule 30 minutes before morning meal Orally Once a day Active hydrOXYzine HCl 25 MG 1 tablet as needed Orally twice a day; Duration: 30 days 07/06/2024 Active OLANZapine 10 MG 1 tablet Orally twic e a day; Duration: 30 days Active Meloxicam 7.5 MG 1 tablet Orally twic e a day Active Atorvastatin Calcium 20 MG 1 tablet Oral ly Once a day Active Cyclobenzaprine HCl 10 MG 1 tablet at be dtime as needed Orally Once a day Active Social History Tobacco Use: Social History Observation Description Date Details (start date - stop date) Current Smoker NA - NA Sex Assigned At : Social History Observation Description Sex Assigned At Male PRAPARE Question Answer Notes Date Completed/Updated: 04/05/2024 What is your current housing situation? I have h ousing Are you worried about losing your housing? No What is the highest level of school that you have finished? More than high school What is your current work situation? Oth erwise unemployed but not seeking work (ex. student, retired, disabled, unpaid primary healthcare social worker) In the past year, have you o r any family members you live with been unable to get any of the following when it was really needed? Check all that apply I do not have problems meeting my needs Has lack of transportation k ept you from medical appointments, meetings, work or from getting things needed for daily living? No How often do you see or talk to people that you care about and feel close to? (For example: talking to friends on the phone, visiting friends or family, going to judaism or club meetings) More than 5 times a week How stressed are you? Stress is when someone feels tense, nervous, anxious, or can\t sleep at night because their mind is troubled A little bit In the past year have you sp ent more than 2 nights in a row in a [place] health care facility, fdc, shelter center, or juvenile correctional facility? No Are you a refugee? No What country are you from? [place] Do you feel physically and e motionally safe where you currently live? Yes In the past year, have you b een afraid of your partner or ex-partner? No PRAPARE Score: 4 Tobacco Control (Standard) Question Answer Notes Tobacco use: Current smoker Problems Problem Type SNOMED Code ICD Code Onset Dates Problem Status W/U Status Risk Notes Problem Information temporarily unavailable Nicotine dependence, unspecified, uncomplicated (F17.200) Active confirmed Problem Information temporarily unavailable Schizoaffective disorder, bipolar type (F25.0) Active confirmed Problem Information temporarily unavailable Social anxiety disorder (F40.10) Active confirmed Encounters Encounter Location Date Provider Diagnosis [facility] [place] [address] 07/06/2024 Irene Archuleta Social anxiety disor michael F40.10 ; Schizoaffective disorder, bipolar type F25.0 and Nicotine dependence, unspecified, uncomplicated F17.200 [facility] [place] [address] 08/24/2024 Irene Archuleta Schizoaffective disorder, bipolar type F25.0 and Nicotine dependence, unspecified, uncomplicated F17.200 [facility] [address] [place] [address] 11/23/2024 Irene Archuleta Schizoaffective disorder, bipolar type F25.0 and Social anxiety disorder F40.10 [facility] [address] [place] [address] 02/23/2025 Irene Archuleta Schizoaffective disorder, bipolar type F25.0 and Social anxiety disorder F40.10 [facility] [address] [place] [address] 03/23/2025 Irene Archuleta Schizoaffective disorder, bipolar type F25.0 and Social anxiety disorder F40.[address] [facility] [place] [address] 06/22/2024 Irene Archuleta Schizoaffective disorder, bipolar type F25.[address] [place] [address] 07/15/2024 Irene Archuleta Schizoaffective disorder, bipolar type F25.[address] [place] [address] 08/17/2024 Irene Archuleta Schizoaffective disorder, bipolar type F25.[address] [place] [address] 01/26/2025 Irene Archuleta Schizoaffective disorder, bipolar type F25.[address] [place] [address] 04/27/2025 Irene Archuleta Assessments Encounter Date Diagnosis (ICD Code) Assessment Notes Treatment Notes Treatment Clinical Notes Section Notes 07/06/2024 Schizoaffective disorder, bipolar type (ICD-10 - F25.0) 07/06/2024 Social anxiety disorder (ICD-10 - F40.10) 07/15/2024 Schizoaffective disorder, bipolar type (ICD-10 - F25.0) 08/17/2024 Schizoaffective disorder, bipolar type (ICD-10 - F25.0) 06/22/2024 Schizoaffective disorder, bipolar type (ICD-10 - F25.0) 08/24/2024 Schizoaffective disorder, bipolar type (ICD-10 - F25.0) Continue current medications. Continue services as scheduled. Labs completed recently. May self-administer medications or be administered own oral medications per [facility] protocols. Provided informed consent with understanding of side effects, adverse effects, risks and benefits as well as alternative treatments as previously discussed and with the above recommended medications & other aspects of the treatment program. Agrees to return sooner if symptoms worsen or suicidal or homicidal ideations occur. 11/23/2024 Schizoaffective disorder, bipolar type (ICD-10 - F25.0) Continue current medications. Continue services as scheduled. Labs completed recently. May self-administer medications or be administered own oral medications per [facility] protocols. Provided informed consent with understanding of side effects, adverse effects, risks and benefits as well as alternative treatments as previously discussed and with the above recommended medications & other aspects of the treatment program. Agrees to return sooner if symptoms worsen or suicidal or homicidal ideations occur. 01/26/2025 Schizoaffective disorder, bipolar type (ICD-10 - F25.0) 02/23/2025 Schizoaffective disorder, bipolar type (ICD-10 - F25.0) Increase Zyprexa to help with mood instability. Labs done recently. Continue services as scheduled. May self-administer medications or be administered own oral medications per [facility] protocols. Provided informed consent with understanding of side effects, adverse effects, risks and benefits as well as alternative treatments as previously discussed and with the above recommended medications & other aspects of the treatment program. Agrees to return sooner if symptoms worsen or suicidal or homicidal ideations occur. 03/23/2025 Schizoaffective disorder, bipolar type (ICD-10 - F25.0) Add prozac to help with depression. Consider reduction in Duloxetine. Labs done recently. Continue services as scheduled. May self-administer medications or be administered own oral medications per [facility] protocols. Provided informed consent with understanding of side effects, adverse effects, risks and benefits as well as alternative treatments as previously discussed and with the above recommended medications & other aspects of the treatment program. Agrees to return sooner if symptoms worsen or suicidal or homicidal ideations occur. 03/23/2025 Social anxiety disorder (ICD-10 - F40.10) 02/23/2025 Social anxiety disorder (ICD-10 - F40.10) 11/23/2024 Social anxiety disorder (ICD-10 - F40.10) 07/06/2024 Nicotine dependence, unspecified, uncomplicated (ICD-10 - F17.200) 08/24/2024 Nicotine dependence, unspecified, uncomplicated (ICD-10 - F17.200) 07/06/2024 Other Discontinue Zyprexa due to poor efficacy. Start Abilify to help with mood instability and paranoia. Continued encouragement to further reduce marijuana use. Continue services as scheduled. Labs completed recently. May self-administer medications or be administered own oral medications per [facility] protocols. Provided informed consent with understanding of side effects, adverse effects, risks and benefits as well as alternative treatments as previously discussed and with the above recommended medications & other aspects of the treatment program. Agrees to return sooner if symptoms worsen or suicidal or homicidal ideations occur. Plan Of Treatment Next Appt Details Provider Name:Irene rosario, 05/18/2025 04:00:00 PM, [address], [place], [address], Insurance Providers Payer Name Payer Address Payer Phone Subscriber Number Group Number Insured Name Patient Relationship to Insured Coverage Start Date Coverage End Date [employer] Att Claims Department [address] [place] [id number] Jace Monzno Self - patient is the insured 3 [facility] Attn Claims Department [address] [place] [id number] Jace Monzon Self - patient is the insured 3 Medical (General) History Medical History History ICD Code None Surgical History Surgery Date(Month/Year) Hospitalization History Reason Date(Month/Year)
--- OUTSIDE RECORDS SUMMARY | 2025-05-07 10:45 | XMS_ITS | Encounter Summary ---
Author Organization [facility] Address [address] [place] [address] Care Team Providers Care Security Manager Name Role Phone Yared Gabriel MD Primary Care Provider [phone] Nazanin Cano DO Primary Care Provider [phone] Aurora Llanos MD Primary Care Provider [phone]- [phone] Encounter Details Date Type Department Care Team (Late st Contact Info) Description 10/08/2015 Abstract [facility] CONVERSION [address] [place], [place] [id number] , Generic ConversionMD Social History Tobacco Use Types Packs/Day Years Used Date Smoking Tobacco: Never Assessed Sex and Gender Information Value Date Recorded Sex Assigned at Male 05/05/2025 12:39 PM VICE PRESIDENT QUALITY ASSURANCE Legal Sex Male 7:39 PM CDT Gender Identity Not on file Sexual Orientation Not on file documented as of this encounter Plan of Treatment Not on file documented as of this encounter Visit Diagnoses Not on filedocumented in this encounter Additional Health Concerns Infection Onset Date Last Indicated Resolved Time COVID-19 Rule Out 06/04/2020 06/04/2020 06/06/2020 8:52 AM VICE PRESIDENT QUALITY ASSURANCE Respiratory Rule Out 05/05/2025 05/05/2025 025 1:15 PM VICE PRESIDENT QUALITY ASSURANCE documented as of this encounter Care Teams Security Manager Relationship Specialty Start Date End Date Yared Gabriel MD [address] [place] [address] PCP - General 04/04/14 06/03/20 Nazanin Cano DO 3 [facility] [address] [place] [phone] PCP - General FAMILY PRACTICE 06/04/20 04/19/23 Aurora Llanos MD 3 [facility] [id number] [place] [address] PCP - General FAMILY PRACTICE 04/20/23 documented as of this encounter
--- OUTSIDE RECORDS SUMMARY | 2025-05-07 10:45 | XMS_ITS | Encounter Summary ---
Author Organization [facility] Address [address] [place] [address] Care Team Providers Care Lead Custodian Name Role Phone Yared Gabriel MD Primary Care Provider [phone] Nazanin Cano DO Primary Care Provider [phone] Aurora Llanos MD Primary Care Provider [phone]- [phone] Encounter Details Date Type Department Care Team (Late st Contact Info) Description 12/03/2015 Abstract [facility] CONVERSION [address] [place], [place] [id number] , Generic ConversionMD Social History Tobacco Use Types Packs/Day Years Used Date Smoking Tobacco: Never Assessed Sex and Gender Information Value Date Recorded Sex Assigned at Male 05/05/2025 12:39 PM FOOD DEMONSTRATOR Legal Sex Male 7:39 PM CDT Gender Identity Not on file Sexual Orientation Not on file documented as of this encounter Plan of Treatment Not on file documented as of this encounter Visit Diagnoses Not on filedocumented in this encounter Additional Health Concerns Infection Onset Date Last Indicated Resolved Time COVID-19 Rule Out 06/04/2020 06/04/2020 06/06/2020 8:52 AM FOOD DEMONSTRATOR Respiratory Rule Out 05/05/2025 05/05/2025 025 1:15 PM FOOD DEMONSTRATOR documented as of this encounter Care Teams Lead Custodian Relationship Specialty Start Date End Date Yared Gabriel MD [address] [place] [address] PCP - General 04/04/14 06/03/20 Nazanin Cano DO 3 [facility] [address] [place] [phone] PCP - General FAMILY PRACTICE 06/04/20 04/19/23 Aurora Llanos MD 3 [facility] [address] [place] [address] PCP - General FAMILY PRACTICE 04/20/23 documented as of this encounter
--- OUTSIDE RECORDS SUMMARY | 2025-05-07 10:45 | XMS_ITS | Encounter Summary ---
Author Organization [facility] Address [address] [place] [address] Care Team Providers Care Commercial Baking Teacher Name Role Phone Yared Gabriel MD Primary Care Provider [phone] Nazanin Cano DO Primary Care Provider [phone] Aurora Llanos MD Primary Care Provider [phone]- [phone] Encounter Details Date Type Department Care Team (Late st Contact Info) Description 06/26/2015 Abstract [facility] CONVERSION [address] [place], [place] [id number] , Generic ConversionMD Social History Tobacco Use Types Packs/Day Years Used Date Smoking Tobacco: Never Assessed Sex and Gender Information Value Date Recorded Sex Assigned at Male 05/05/2025 12:39 PM TRUCK BODY BUILDER APPRENTICE Legal Sex Male 7:39 PM CDT Gender Identity Not on file Sexual Orientation Not on file documented as of this encounter Plan of Treatment Not on file documented as of this encounter Visit Diagnoses Not on filedocumented in this encounter Additional Health Concerns Infection Onset Date Last Indicated Resolved Time COVID-19 Rule Out 06/04/2020 06/04/2020 06/06/2020 8:52 AM TRUCK BODY BUILDER APPRENTICE Respiratory Rule Out 05/05/2025 05/05/2025 025 1:15 PM TRUCK BODY BUILDER APPRENTICE documented as of this encounter Care Teams Commercial Baking Teacher Relationship Specialty Start Date End Date Yared Gabriel MD [address] [place] [address] PCP - General 04/04/14 06/03/20 Nazanin Cano DO 3 [facility] [address] [place] [phone] PCP - General FAMILY PRACTICE 06/04/20 04/19/23 Aurora Llanos MD 3 [facility] [address] [place] [address] PCP - General FAMILY PRACTICE 04/20/23 documented as of this encounter
--- OUTSIDE RECORDS SUMMARY | 2025-05-07 10:45 | XMS_ITS | Encounter Summary ---
Author Organization [facility] Address [address] [place] [address] Care Team Providers Care Nutrition Technician Name Role Phone Yared Gabriel MD Primary Care Provider [phone] Nazanin Cano DO Primary Care Provider [phone] Aurora Llanos MD Primary Care Provider [phone]- [phone] Encounter Details Date Type Department Care Team (Late st Contact Info) Description 08/31/2015 Abstract [facility] CONVERSION [address] [place], [place] [id number] , Generic ConversionMD Social History Tobacco Use Types Packs/Day Years Used Date Smoking Tobacco: Never Assessed Sex and Gender Information Value Date Recorded Sex Assigned at Male 05/05/2025 12:39 PM NON DESTRUCTIVE TESTING INSPECTOR Legal Sex Male 7:39 PM CDT Gender Identity Not on file Sexual Orientation Not on file documented as of this encounter Plan of Treatment Not on file documented as of this encounter Visit Diagnoses Not on filedocumented in this encounter Additional Health Concerns Infection Onset Date Last Indicated Resolved Time COVID-19 Rule Out 06/04/2020 06/04/2020 06/06/2020 8:52 AM NON DESTRUCTIVE TESTING INSPECTOR Respiratory Rule Out 05/05/2025 05/05/2025 025 1:15 PM NON DESTRUCTIVE TESTING INSPECTOR documented as of this encounter Care Teams Nutrition Technician Relationship Specialty Start Date End Date Yared Gabriel MD [address] [place] [address] PCP - General 04/04/14 06/03/20 Nazanin Cano DO 3 [facility] [address] [place] [phone] PCP - General FAMILY PRACTICE 06/04/20 04/19/23 Aurora Llanos MD 3 [facility] [address] [place] [address] PCP - General FAMILY PRACTICE 04/20/23 documented as of this encounter
--- OUTSIDE RECORDS SUMMARY | 2025-05-07 10:45 | XMS_ITS | Encounter Summary ---
Author Organization [facility] Address [address] [place] [address] Care Team Providers Care Can Filler Name Role Phone Yared Gabriel MD Primary Care Provider [phone] Nazanin Cano DO Primary Care Provider [phone] Aurora Llanos MD Primary Care Provider [phone]- [phone] Encounter Details Date Type Department Care Team (Late st Contact Info) Description 06/05/2015 Abstract [facility] CONVERSION [address] [place], [place] [id number] , Generic ConversionMD Social History Tobacco Use Types Packs/Day Years Used Date Smoking Tobacco: Never Assessed Sex and Gender Information Value Date Recorded Sex Assigned at Male 05/05/2025 12:39 PM CASH APPLICATIONS MANAGER Legal Sex Male 7:39 PM CDT Gender Identity Not on file Sexual Orientation Not on file documented as of this encounter Plan of Treatment Not on file documented as of this encounter Visit Diagnoses Not on filedocumented in this encounter Additional Health Concerns Infection Onset Date Last Indicated Resolved Time COVID-19 Rule Out 06/04/2020 06/04/2020 06/06/2020 8:52 AM CASH APPLICATIONS MANAGER Respiratory Rule Out 05/05/2025 05/05/2025 025 1:15 PM CASH APPLICATIONS MANAGER documented as of this encounter Care Teams Can Filler Relationship Specialty Start Date End Date Yared Gabriel MD [address] [place] [address] PCP - General 04/04/14 06/03/20 Nazanin Cano DO 3 [facility] [address] [place] [phone] PCP - General FAMILY PRACTICE 06/04/20 04/19/23 Aurora Llanos MD 3 [facility] [address] [place] [address] PCP - General FAMILY PRACTICE 04/20/23 documented as of this encounter
--- OUTSIDE RECORDS SUMMARY | 2025-05-07 10:45 | XMS_ITS | Encounter Summary ---
Author Organization [facility] Address [address] [place] [address] Care Team Providers Care Edge Baster Name Role Phone Yared Gabriel MD Primary Care Provider [phone] Nazanin Cano DO Primary Care Provider [phone] Aurora Llanos MD Primary Care Provider [phone]- [phone] Encounter Details Date Type Department Care Team (Late st Contact Info) Description 09/11/2015 Abstract [facility] CONVERSION [address] [place], [place] [id number] , Generic ConversionMD Social History Tobacco Use Types Packs/Day Years Used Date Smoking Tobacco: Never Assessed Sex and Gender Information Value Date Recorded Sex Assigned at Male 05/05/2025 12:39 PM POOL TABLE OPERATOR Legal Sex Male 7:39 PM CDT Gender Identity Not on file Sexual Orientation Not on file documented as of this encounter Plan of Treatment Not on file documented as of this encounter Visit Diagnoses Not on filedocumented in this encounter Additional Health Concerns Infection Onset Date Last Indicated Resolved Time COVID-19 Rule Out 06/04/2020 06/04/2020 06/06/2020 8:52 AM POOL TABLE OPERATOR Respiratory Rule Out 05/05/2025 05/05/2025 025 1:15 PM POOL TABLE OPERATOR documented as of this encounter Care Teams Edge Baster Relationship Specialty Start Date End Date Yared Gabriel MD [address] [place] [address] PCP - General 04/04/14 06/03/20 Nazanin Cano DO 3 [facility] [address] [place] [phone] PCP - General FAMILY PRACTICE 06/04/20 04/19/23 Aurora Llanos MD 3 [facility] [address] [place] [address] PCP - General FAMILY PRACTICE 04/20/23 documented as of this encounter
--- OUTSIDE RECORDS SUMMARY | 2025-05-07 10:45 | XMS_ITS | Encounter Summary ---
Author Organization [facility] Address [address] [place] [address] Care Team Providers Care Video Rental Clerk Name Role Phone Yared Gabriel MD Primary Care Provider [phone] Nazanin Cano DO Primary Care Provider [phone] Aurora Llanos MD Primary Care Provider [phone]- [phone] Encounter Details Date Type Department Care Team (Late st Contact Info) Description 05/21/2015 Abstract [facility] CONVERSION [address] [place], [place] [id number] , Generic ConversionMD Social History Tobacco Use Types Packs/Day Years Used Date Smoking Tobacco: Never Assessed Sex and Gender Information Value Date Recorded Sex Assigned at Male 05/05/2025 12:39 PM ELECTRONICS SCALE TESTER Legal Sex Male 7:39 PM CDT Gender Identity Not on file Sexual Orientation Not on file documented as of this encounter Plan of Treatment Not on file documented as of this encounter Visit Diagnoses Not on filedocumented in this encounter Additional Health Concerns Infection Onset Date Last Indicated Resolved Time COVID-19 Rule Out 06/04/2020 06/04/2020 06/06/2020 8:52 AM ELECTRONICS SCALE TESTER Respiratory Rule Out 05/05/2025 05/05/2025 025 1:15 PM ELECTRONICS SCALE TESTER documented as of this encounter Care Teams Video Rental Clerk Relationship Specialty Start Date End Date Yared Gabriel MD [address] [place] [address] PCP - General 04/04/14 06/03/20 Nazanin Cano DO 3 [facility] [address] [place] [phone] PCP - General FAMILY PRACTICE 06/04/20 04/19/23 Aurora Llanos MD 3 [facility] [address] [place] [address] PCP - General FAMILY PRACTICE 04/20/23 documented as of this encounter
--- OUTSIDE RECORDS SUMMARY | 2025-05-07 10:45 | XMS_ITS | Encounter Summary ---
Author Organization [facility] Address [facility] [place] [address] Care Team Providers Care Commodity Management Specialist Name Role Phone Yared Gabriel MD Primary Care Provider [phone] Nazanin Cano DO Primary Care Provider [phone] Aurora Llanos MD Primary Care Provider [phone] Encounter Details Date Type Department Care Team (Late st Contact Info) Description 02/23/2015 Abstract [facility] CONVERSION [address] [place] [address] , Generic Conversion, Social History Tobacco Use Types Packs/Day Years Used Date Smoking Tobacco: Never Assessed Sex and Gender Information Value Date Recorded Sex Assigned at Male 05/05/2025 12:39 PM QUALITY ASSURANCE SUPERVISOR BODY Legal Sex Male 7:39 PM CDT Gender Identity Not on file Sexual Orientation Not on file documented as of this encounter Plan of Treatment Not on file documented as of this encounter Visit Diagnoses Not on filedocumented in this encounter Additional Health Concerns Infection Onset Date Last Indicated Resolved Time COVID-19 Rule Out 06/04/2020 06/04/2020 06/06/2020 8:52 AM QUALITY ASSURANCE SUPERVISOR BODY Respiratory Rule Out 05/05/2025 05/05/2025 025 1:15 PM QUALITY ASSURANCE SUPERVISOR BODY documented as of this encounter Care Teams Commodity Management Specialist Relationship Specialty Start Date End Date Yared Gabriel MD [address] [place] [address] PCP - General 04/04/14 06/03/20 Nazanin Cano DO 3 [facility] [address] [place] [phone] PCP - General FAMILY PRACTICE 06/04/20 04/19/23 Aurora Llanos MD 3 [facility] [address] [place] [address] PCP - General FAMILY PRACTICE 04/20/23 documented as of this encounter
--- OUTSIDE RECORDS SUMMARY | 2025-05-07 10:45 | XMS_ITS | Encounter Summary ---
Author Organization [facility] Address [address] [place] [address] Care Team Providers Care Foot Orthopedist Name Role Phone Yared Gabriel MD Primary Care Provider [phone] Nazanin Cano DO Primary Care Provider [phone] Aurora Llanos MD Primary Care Provider [phone] Encounter Details Date Type Department Care Team (Late st Contact Info) Description 07/09/2015 Abstract [facility] CONVERSION [address] [place], [place] [id number] , Generic ConversionMD Social History Tobacco Use Types Packs/Day Years Used Date Smoking Tobacco: Never Assessed Sex and Gender Information Value Date Recorded Sex Assigned at Male 05/05/2025 12:39 PM [employer]IND[employer] Legal Sex Male 7:39 PM CDT Gender Identity Not on file Sexual Orientation Not on file documented as of this encounter Plan of Treatment Not on file documented as of this encounter Visit Diagnoses Not on filedocumented in this encounter Additional Health Concerns Infection Onset Date Last Indicated Resolved Time COVID-19 Rule Out 06/04/2020 06/04/2020 06/06/2020 8:52 AM CYLINDER HAND[employer]ER Respiratory Rule Out 05/05/2025 05/05/2025 025 1:15 PM [employer]LINDER HANDLER documented as of this encounter Care Teams Foot Orthopedist Relationship Specialty Start Date End Date Yared Gabriel MD [address] [place] [address] PCP - General 04/04/14 06/03/20 Nazanin Cano DO 3 [facility] [address] [place] [phone] PCP - General FAMILY PRACTICE 06/04/20 04/19/23 Aurora Llanos MD [address] [facility] [id number] [place] [address] PCP - General FAMILY PRACTICE 04/20/23 documented as of this encounter
[2025-05-07 10:52] VITALS: BP 141/85; PULSE 92; RESP 18; TEMP 37.1; O2SAT 100
--- NOTE | 2025-05-07 11:01 | ED.URI ---
HPI - URI/Sore Throat General Chief Complaint: Upper Respiratory Infection Stated Complaint: Cough patient presents to the [facility] with complaints of continued nasal congestion, nasal drainage, sinus pain, headache fatigue, and chest congestion with productive cough that began over last 2-3 days. Patient noted he was seen on the 1st day of symptoms had negative flu, COVID strep and chest x-ray. was given cough syrup and Bactrim antibiotic. Patient stop taking the antibiotic due to significant stomach upset. Patient noted he has been taking Advil cold and Sinus, Mucinex, and nasal spray with temporary relief of symptoms. Denies fever, chills, body aches, dizziness, shortness of breath, nausea, vomiting, diarrhea. Related Data Home Medications ?Medication ?Instructions ?Recorded ?Confirmed ?Last Taken ?Type olanzapine 2.5 mg tablet 2.5 mg PO HS 04/02/22 01/06/23 Unknown History omeprazole 40 mg capsule,delayed 40 mg PO DAILY 04/02/22 01/06/23 Unknown History release propranolol 20 mg tablet 20 mg PO DAILY 04/02/22 01/06/23 Unknown History atorvastatin 80 mg tablet 80 mg PO DAILY 12/12/22 01/06/23 Unknown History duloxetine 60 mg capsule,delayed 60 mg PO DAILY 12/12/22 01/06/23 Unknown History release aripiprazole 5 mg tablet mg 05/07/25 Unknown History codeine 10 mg-guaifenesin 100 mg/5 ml 05/07/25 Unknown History mL oral liquid metformin 1,000 mg tablet mg 05/07/25 Unknown History sulfamethoxazole 800 tablet 05/07/25 Unknown History mg-trimethoprim 160 mg tablet Allergies Allergy/AdvReac Type Severity Reaction Status Date / Time amoxicillin (From Augmentin) AdvReac Vomiting Verified 03/23/24 14:41 clavulanic acid (From AdvReac Vomiting Verified 03/23/24 14:41 Augmentin) Review of Systems Constitutional: Constitutional: Reports as per HPI, Denies chills, Reports fatigue, Denies fever(s) and Denies weakness Eyes: Eyes: Reports no additional eye complaints ENT: Reports as per HPI, Denies vertigo, Denies dizziness, Reports nasal congestion and Reports sore throat Comments: sinus pain Cardiovascular: Cardiovascular: Reports no additional cardiovascular complaints Respiratory: Respiratory: Reports as per HPI, Reports chest congestion, Reports cough, Denies dyspnea and Denies wheezing Gastrointestinal: Gastrointestinal: Reports no additional gastrointestinal complaints Genitourinary: Genitourinary: Reports no additional male genitourinary complaints Musculoskeletal: Musculoskeletal: Reports as per HPI, Denies back pain and Denies myalgias Integumentary/Breasts: Skin/Breast: Reports as per HPI, Denies pruritus, Denies erythema and Denies rash Neurologic: Reports as per HPI, Denies vertigo, Denies dizziness, Reports headache(s), Denies numbness and Denies weakness Psychiatric: Psychiatric: Reports no additional psychiatric complaints Endocrine: Endocrine: Reports no additional endocrine complaints Hematologic/Lymphatic: Hematologic/Lymphatic: Reports no additional hematologic/lymphatic complaints Allergic/Immunologic: Allergic/Immunologic: Reports as per HPI and Denies wheezing PMFSH Past Medical History Medical History (Updated 05/07/25 @ 11:02 by Narcisa Humphrey APRN, LODGING MANAGER-C) Mixed hyperlipidemia History of IBS Family History Family History Grandparent Diabetes mellitus Other Family history of malignant neoplasm Social History Social History Smoking status: Never smoker Alcohol intake: never Exam Const: General: healthy appearing and no acute distress Nutritional Appearance: well nourished Orientation/consciousness: patient oriented x3 Limitations: no limitations HENMT: Head: normal to inspection Ears: external ears normal and TM's normal bilaterally Face/Nose/Sinus: Normal external nose present, Normal nares present and Nasal discharge present clear Face and sinus: normal facial exam and sinuses nontender Mouth: Yes Normal oral and palatal mucosa present and Yes moist mucous membranes Throat: posterior oropharynx abnormal ( Mild edema and erythema no exudate) Neck: Neck: normal visual inspection and no lymphadenopathy Resp: Effort & Inspection: normal respiratory effort Auscultation: no rhonchi, wheezes left upper and right upper, breath sounds present and lung sounds not diminished Cardio: Rate: regular rate Rhythm: regular rhythm Skin: General skin exam: normal color Rashes: no rashes Wounds: no wounds Neuro: General: patient oriented x3 Speech: normal speech Gait exam (Neuro): Normal gait present Extrem: General: normal to inspection and no clubbing, cyanosis or edema Psych: Mental Status: mental status grossly normal Affect: normal affect Attitude: cooperative Course Course Level of Care: Express Care Visit Vital Signs Vital signs: Vital Signs Temperature 98.7 F 05/07/25 10:52 Pulse Rate 92 05/07/25 10:52 Respiratory Rate 18 05/07/25 10:52 Blood Pressure 141/85 H 05/07/25 10:52 Pulse Oximetry 100 05/07/25 10:52 Oxygen Delivery Room Air 05/07/25 10:52 Temperature 98.7 F 05/07/25 10:52 Pulse Rate 92 05/07/25 10:52 Respiratory Rate 18 05/07/25 10:52 Blood Pressure 141/85 H 05/07/25 10:52 Pulse Oximetry 100 05/07/25 10:52 Oxygen Delivery Room Air 05/07/25 10:52 MDM - URI/Sore Throat MDM Narrative Medical decision making narrative: spoke with patient about antibiotic use of Bactrim and this is not indicated with viral illness. Educated patient on inhaler use. The patient was evaluated by myself in the express care. History is obtained from patient who is an independent historian and physical exam was performed. Available medical records were reviewed at this time. Exam findings show no acute concerns or changes; patient is non-toxic appearing and is in no distress. Patient is appropriate for outpatient treatment and follow-up. I have evaluated and discussed social determinants of health with the patient that could potentially impact subsequent diagnosis and treatment plans. Differential diagnosis and treatment plan were discussed with the patient. Patient agrees with discussion and after shared medical decision making agrees with plan of care. All questions were answered to the patient's satisfaction. Differential Diagnosis Differential diagnosis: Likely upper respiratory infection, croup, otitis media, sinusitis, viral infection, bronchitis, influenza and pharyngitis Medical Records Attestation: I reviewed the patient's medical records. Discharge Plan Discharge Clinical Impression: Bronchitis Patient Disposition: Home Condition: Stable Instructions: Antibiotic Form, How to Use a Metered-Dose Inhaler (ED), Acute Bronchitis (ED) Additional Instructions: You have been diagnosed with bronchitis, this is more commonly a viral illness. Taking medications to control your symptoms will help until your body gets rid of this virus. Antibiotics will not work to get you better sooner. Bronchitis does occasionally a post viral cough that is dry and hacking in nature that can last 6-8 weeks. Medication you can take to make you feel better: prednisone as directed. this medication can cause jitteriness or palpitations. If this happens You may stop this medication. albuterol inhaler every 4 hours as needed for cough, shortness of breath, or wheezing. Tessalon Perles/benzonatate for cough. These can be taken 3 times a day as needed. May also use [id number] medications like Mucinex, Sudafed, Flonase, Tylenol, and ibuprofen. If your symptoms worsen or last longer than 7-10 days follow-up with primary care provider or emergency room as needed. Patient Language: Austrian Prescriptions: New benzonatate 200 mg capsule 200 mg PO TID PRN (Reason: cough) Qty: 30 0RF methylprednisolone [Medrol (Puma)] 4 mg tablets,dose pack See Rx Instructions .ROUTE .COMPLEX Qty: 21 0RF Rx Instructions: for 6 days albuterol sulfate [Ventolin HFA] 90 mcg/actuation HFA aerosol inhaler 2 puff inhalation QID PRN (Reason: shortness of breath or wheezing) Qty: 8.5 0RF No Action olanzapine 2.5 mg tablet 2.5 mg PO HS omeprazole 40 mg capsule,delayed release(DR/EC) 40 mg PO DAILY propranolol 20 mg tablet 20 mg PO DAILY atorvastatin 80 mg tablet 80 mg PO DAILY duloxetine 60 mg capsule,delayed release(DR/EC) 60 mg PO DAILY sulfamethoxazole-trimethoprim 800-160 mg tablet metformin 1,000 mg tablet codeine-guaifenesin 10-100 mg/5 mL liquid aripiprazole 5 mg tablet Follow-up/Referrals: Sherif,Aurora Hou MD [Primary Care Provider] Time of Disposition: 11:03
== END 2025-05-07 11:07 | disposition home or self-care (01) ==
PROVIDERS: Emergency Provider Nurse Practitioner Family; PCP Family Medicine
DX: J40 Bronchitis, not specified as acute or chronic (principal); E78.2 Mixed hyperlipidemia
CPT/HCPCS: 99213; G0463